=== PATIENT | female | born 1935 | race Caucasian/White ===

== ENCOUNTER 2022-02-15 18:08 | Inpatient (IN) | payer MEDICARE, OTHER ==
[~2022-02-15] VITALS: Ht 157.5 cm; Wt 56.5 kg
[2022-02-15 19:04] LABS: Basophils # (auto) 0 10 ^3/uL (0-0.2); Eosinophils # (auto) 0 10 ^3/uL (0-0.8); Hemoglobin 15.2 g/dL (12.2-16.2); Lymphocytes # (auto) 0.7 10 ^3/uL (0.4-5.4); Monocytes # (auto) 0.6 10 ^3/uL (0-1.3); Neutrophils # (auto) 5.9 10 ^3/uL (1.6-8.6); Red Blood Cells 5.31 10^6/uL (4.0-5.20); Red Cell Distribution Width 14.5 % (11.8-14.3)
[2022-02-15 19:05] LABS: Basophils % (auto) 0.4 % (0.0-2.0); Eosinophils % (auto) 0.1 % (0.0-7.0); Hematocrit 49.1 % (36.0-46.0); Lymphocytes % (auto) 9.9 % (10.0-50.0); Mean Corpuscular Hemoglobin 28.7 pg (28.0-32.0); Mean Corpuscular Volume 92.4 fL (80.0-100.0); Monocytes % (auto) 8.3 % (0.0-12.0); Neutrophils % (auto) 81.3 % (37.0-80.0); Nucleated Red Blood Cells % 0.6 %; White Blood Cell 7.3 10^3/uL (4.4-10.8)
[2022-02-15 19:25] LABS: Alanine Aminotransferase 19 U/L (13-56); Albumin 3.5 g/dL (3.4-5.0); Anion Gap 9 (5-15); Blood Urea Nitrogen 18 mg/dL (7-18); Calcium 8.3 mg/dL (8.5-10.1); Carbon Dioxide 29 mmol/L (21-32); Chloride 99 mmol/L (98-107); GFR African American 117 mL/min; GFR Non-African American 97 mL/min; Glucose 89 mg/dL (74-106); Magnesium 2.2 mg/dL (1.6-2.6); Potassium 5.4 mmol/L (3.5-5.1); Sodium 137 mmol/L (136-145)
[2022-02-15 19:28] LABS: Alkaline Phosphatase 56 U/L (45-117); Aspartate Aminotransferase 40 U/L (15-37); Bilirubin, Total 0.8 mg/dL (0.2-1.0); Total Protein 6.3 g/dL (6.4-8.2)
[2022-02-16 01:18] LABS: Urine Bacteria NONE SEEN /hpf (None Seen); Urine Blood Negative /uL (Negative); Urine Hyaline Cast FEW /lpf (0 - 2); Urine Mucus MODERATE (None Seen); Urine Specific Gravity 1.032 (1.001-1.035); Urine WBC 5 /hpf (0 - 5)
[2022-02-16] MEDS ORDERED: FUROSEMIDE 100 MG/10ML VIAL IV ONE (03:15)
[2022-02-16] MEDS ORDERED: ACETAMINOPHEN 325 MG TAB PO PRN (06:00)
[2022-02-16] MEDS ORDERED: ONDANSETRON HCL 4 MG/2 ML VIAL IV PRN (06:00)
[2022-02-16] MEDS ORDERED: MORPHINE SULFATE INJ 2 MG/ml SYRG IV PRN (06:00)
[2022-02-16] MEDS ORDERED: NITROGLYCERIN 0.4 MG SL TAB SL PRN (06:00)
[2022-02-16] MEDS ORDERED: HYDROcodone-ACET 5/325MG TAB PO PRN (06:00)
[2022-02-16] MEDS: FUROSEMIDE 20 MG/2 ML VIAL IV SCH ×2 (06:24→18:00)
[2022-02-16] MEDS ORDERED: cefTRIAXone 1GM/50ML D5W 50 ML IV SCH (09:00)
[2022-02-16] MEDS ORDERED: ZINC SULFATE 220mg CAP or TAB PO SCH (10:00)
[2022-02-16] MEDS ORDERED: AZITHROMYCIN 500MG/ 250ML 250 ML IV SCH (10:00)
[2022-02-16] MEDS ORDERED: ASCORBIC ACID 500 MG TAB PO SCH (10:00)
[2022-02-16] MEDS ORDERED: PANTOPRAZOLE 40 MG TAB PO SCH (10:00)
[2022-02-16] MEDS ORDERED: ASPirin 81 mg TAB PO SCH (10:00)
[2022-02-16 11:40] VITALS: BP 126/70
[2022-02-16 11:52] VITALS: BP 126/70
[2022-02-16] MEDS: ENOXAPARIN SOD 40 MG/0.4 ML SYRINGE SC SCH (13:46)
[2022-02-16 14:15] VITALS: BP 85/52
[2022-02-16 19:05] VITALS: BP 95/47
[2022-02-16] MEDS ORDERED: CLINDAMYCIN 300MG IV 50 ML IV ONE (19:15)
[2022-02-16 20:05] VITALS: BP 93/52
[2022-02-16 21:04] LABS: Basophils # (auto) 0 10 ^3/uL (0-0.2); Basophils % (auto) 0.4 % (0.0-2.0); Eosinophils # (auto) 0 10 ^3/uL (0-0.8); Eosinophils % (auto) 0.1 % (0.0-7.0); Hematocrit 45.5 % (36.0-46.0); Hemoglobin 13.8 g/dL (12.2-16.2); Lymphocytes # (auto) 0.8 10 ^3/uL (0.4-5.4); Lymphocytes % (auto) 10.9 % (10.0-50.0); Mean Corpuscular Hemoglobin 28.5 pg (28.0-32.0); Mean Corpuscular Hgb Conc. 30.3 g/dL (32.0-36.0); Mean Corpuscular Volume 94.2 fL (80.0-100.0); Monocytes # (auto) 0.7 10 ^3/uL (0-1.3); Monocytes % (auto) 8.9 % (0.0-12.0); Neutrophils % (auto) 79.7 % (37.0-80.0); Nucleated Red Blood Cells % 0.4 %; Red Blood Cells 4.83 10^6/uL (4.0-5.20); Red Cell Distribution Width 14.7 % (11.8-14.3); White Blood Cell 7.5 10^3/uL (4.4-10.8)
[2022-02-16 21:18] LABS: Anion Gap 4 (5-15); BUN/Creatinine Ratio 31.1; Blood Urea Nitrogen 19 mg/dL (7-18); Calcium 8.1 mg/dL (8.5-10.1); Carbon Dioxide 40 mmol/L (21-32); Chloride 95 mmol/L (98-107); GFR African American 120 mL/min; GFR Non-African American 99 mL/min; Glucose 102 mg/dL (74-106); Sodium 139 mmol/L (136-145)
[2022-02-16] MEDS ORDERED: ALBUMIN 5% 250 ML IV ONE (21:30)
[2022-02-16] MEDS ORDERED: ATORVASTATIN 20 MG TAB PO SCH (22:00)
[2022-02-16 22:10] VITALS: BP 78/45
[2022-02-16] MEDS: CEFEPIME 1GM/ 50ML 50 ML IV SCH (22:25)
[2022-02-17 00:25] VITALS: BP 100/55
[2022-02-17 02:32] VITALS: BP 89/54
[2022-02-17 04:10] VITALS: BP 92/57
[2022-02-17 05:16] LABS: Eosinophils # (auto) 0 10 ^3/uL (0-0.8); Hemoglobin 14.5 g/dL (12.2-16.2); Lymphocytes # (auto) 0.8 10 ^3/uL (0.4-5.4); Monocytes # (auto) 0.6 10 ^3/uL (0-1.3); Neutrophils # (auto) 6.3 10 ^3/uL (1.6-8.6); Nucleated Red Blood Cells % 0.3 %
[2022-02-17 05:21] LABS: Basophils # (auto) 0.1 10 ^3/uL (0-0.2); Basophils % (auto) 1.2 % (0.0-2.0); Eosinophils % (auto) 0.2 % (0.0-7.0); Lymphocytes % (auto) 10.4 % (10.0-50.0); Mean Corpuscular Hemoglobin 28.5 pg (28.0-32.0); Mean Corpuscular Hgb Conc. 30.8 g/dL (32.0-36.0); Mean Corpuscular Volume 92.6 fL (80.0-100.0); Monocytes % (auto) 7.6 % (0.0-12.0); Neutrophils % (auto) 80.6 % (37.0-80.0); Red Blood Cells 5.08 10^6/uL (4.0-5.20); Red Cell Distribution Width 14.6 % (11.8-14.3); White Blood Cell 7.8 10^3/uL (4.4-10.8)
[2022-02-17 05:34] LABS: Albumin 3.3 g/dL (3.4-5.0); Calcium 8.3 mg/dL (8.5-10.1); Potassium 3.7 mmol/L (3.5-5.1)
[2022-02-17 05:37] LABS: BUN/Creatinine Ratio 30.6; Bilirubin, Total 0.7 mg/dL (0.2-1.0); Total Protein 5.8 g/dL (6.4-8.2)
[2022-02-17] MEDS: CLINDAMYCIN 300MG IV 50 ML IV SCH ×2 (06:16→14:46)
[2022-02-17 07:20] VITALS: BP 85/50
[2022-02-17] MEDS ORDERED: PHENYLEPHRINE IV 250 ML IV SCH (07:45)
[2022-02-17 08:20] VITALS: BP 94/54
[2022-02-17] MEDS: FUROSEMIDE 20 MG/2 ML VIAL IV SCH (10:00)
[2022-02-17] MEDS: CEFEPIME 1GM/ 50ML 50 ML IV SCH (10:44)
[2022-02-17] MEDS: ENOXAPARIN SOD 40 MG/0.4 ML SYRINGE SC SCH (10:44)
[2022-02-17] MEDS ORDERED: VANCOMYCIN PER PHARMACY 0 MG IV SCH (16:45)
[2022-02-17] MEDS: VANCOMYCIN 1GM/250ML 250 ML IV SCH (17:01)
[2022-02-18] MEDS: CEFEPIME 1GM/ 50ML 50 ML IV SCH (01:15)
[2022-02-18 05:01] VITALS: BP 106/53
[2022-02-18 09:00] VITALS: BP 112/60
[2022-02-18] MEDS: ENOXAPARIN SOD 40 MG/0.4 ML SYRINGE SC SCH (10:46)
[2022-02-18] MEDS: FUROSEMIDE 20 MG/2 ML VIAL IV SCH (10:46)
[2022-02-18 13:00] VITALS: BP 118/65
[2022-02-18 17:00] VITALS: BP 119/63
[2022-02-18] MEDS: VANCOMYCIN 1GM/250ML 250 ML IV SCH (17:22)
[2022-02-18 22:00] VITALS: BP 113/58
[2022-02-19 04:52] VITALS: BP 100/55
[2022-02-19 09:00] VITALS: BP 103/60
[2022-02-19 10:02] VITALS: BP 103/60
[2022-02-19 13:00] VITALS: BP 120/67
[2022-02-19] MEDS: ENOXAPARIN SOD 40 MG/0.4 ML SYRINGE SC SCH (13:06)
[2022-02-19] MEDS: FUROSEMIDE 20 MG/2 ML VIAL IV SCH (13:06)
[2022-02-19] MEDS: ALBUTEROL SULF 2.5 MG/0.5ML(0.5%) NEB SOLN NEB PRN (14:41)
[2022-02-19] MEDS: IPRATROPIUM BROM 0.5 MG/2.5ML INH SOL NEB PRN (14:41)
[2022-02-19 17:00] VITALS: BP 122/67
[2022-02-19] MEDS: VANCOMYCIN 1GM/250ML 250 ML IV SCH (17:03)
[2022-02-19 21:28] VITALS: BP 107/58
[2022-02-20 04:53] VITALS: BP 94/58
[2022-02-20 06:00] LABS: BUN/Creatinine Ratio 41.4; Calcium 8.4 mg/dL (8.5-10.1)
[2022-02-20 08:16] VITALS: BP 97/57
[2022-02-20] MEDS: FUROSEMIDE 20 MG/2 ML VIAL IV SCH (10:34)
[2022-02-20] MEDS: ENOXAPARIN SOD 40 MG/0.4 ML SYRINGE SC SCH (10:34)
[2022-02-20 11:43] VITALS: BP 121/65
[2022-02-20 17:00] VITALS: BP 122/57
[2022-02-20] MEDS: IPRATROPIUM BROM 0.5 MG/2.5ML INH SOL NEB PRN ×2 (17:38→22:08)
[2022-02-20] MEDS: ALBUTEROL SULF 2.5 MG/0.5ML(0.5%) NEB SOLN NEB PRN ×2 (17:38→22:08)
[2022-02-20] MEDS: VANCOMYCIN 1GM/250ML 250 ML IV SCH (18:11)
[2022-02-20 21:48] VITALS: BP 129/67
[2022-02-21 04:54] VITALS: BP 101/64
[2022-02-21 08:00] VITALS: BP 114/59
[2022-02-21 09:00] VITALS: BP 113/65
[2022-02-21] MEDS: ALBUTEROL SULF 2.5 MG/0.5ML(0.5%) NEB SOLN NEB PRN ×2 (09:08→23:42)
[2022-02-21] MEDS: IPRATROPIUM BROM 0.5 MG/2.5ML INH SOL NEB PRN ×2 (09:08→23:42)
[2022-02-21] MEDS: FUROSEMIDE 20 MG/2 ML VIAL IV SCH (10:01)
[2022-02-21] MEDS: ENOXAPARIN SOD 40 MG/0.4 ML SYRINGE SC SCH (10:01)
[2022-02-21 13:00] VITALS: BP 125/71
[2022-02-21] MEDS: VANCOMYCIN 1GM/250ML 250 ML IV SCH (16:37)
[2022-02-21 17:00] VITALS: BP 104/53
[2022-02-21 22:00] VITALS: BP 132/66
[2022-02-22] MEDS: IPRATROPIUM BROM 0.5 MG/2.5ML INH SOL NEB PRN (03:11)
[2022-02-22] MEDS: ALBUTEROL SULF 2.5 MG/0.5ML(0.5%) NEB SOLN NEB PRN (03:11)
[2022-02-22 05:00] VITALS: BP 109/69
[2022-02-22 09:00] VITALS: BP 120/68
[2022-02-22 09:33] LABS: BUN/Creatinine Ratio 14.1; Calcium 8.9 mg/dL (8.5-10.1)
[2022-02-22] MEDS: ENOXAPARIN SOD 40 MG/0.4 ML SYRINGE SC SCH (10:11)
[2022-02-22] MEDS: FUROSEMIDE 20 MG/2 ML VIAL IV SCH (10:11)
[2022-02-22 13:00] VITALS: BP 129/68
[2022-02-22 17:20] VITALS: BP 122/64
[2022-02-22] MEDS: VANCOMYCIN 1GM/250ML 250 ML IV SCH (17:59)
[2022-02-22 22:00] VITALS: BP 111/48
[2022-02-23 05:50] VITALS: BP 111/48
[2022-02-23 05:57] VITALS: BP 118/67
[2022-02-23 09:00] VITALS: BP 137/67
[2022-02-23] MEDS: ENOXAPARIN SOD 40 MG/0.4 ML SYRINGE SC SCH (10:09)
[2022-02-23] MEDS: FUROSEMIDE 20 MG/2 ML VIAL IV SCH (10:10)
[2022-02-23] MEDS ORDERED: AMOX500T86 PO (12:22)
[2022-02-23] MEDS ORDERED: DOXY-340 PO (12:23)
[2022-02-23 13:00] VITALS: BP 111/72
[2022-02-23 15:42] VITALS: BP 118/67
== END 2022-02-23 17:45 | disposition home health service (06) | DRG 193 ==
LOC: ER 18:08 → TELE-CENTR 22:22 → TELE 02-16 05:49 → TELE-CENTR 02-17 22:30
PROVIDERS: ADMIT Nurse Practitioner; ATTEND Internal Medicine Nephrology
PROC: 5A09357 Assistance with Respiratory Ventilation, Less than 24 Consecutive Hours, Continuous Positive Airway Pressure (ICD-10-PCS; principal; 2022-02-16)
PROC: 5A09357 Assistance with Respiratory Ventilation, Less than 24 Consecutive Hours, Continuous Positive Airway Pressure (ICD-10-PCS; 2022-02-17)
PROC: 5A09357 Assistance with Respiratory Ventilation, Less than 24 Consecutive Hours, Continuous Positive Airway Pressure (ICD-10-PCS; 2022-02-18)
PROC: 5A09357 Assistance with Respiratory Ventilation, Less than 24 Consecutive Hours, Continuous Positive Airway Pressure (ICD-10-PCS; 2022-02-19)
PROC: 5A09357 Assistance with Respiratory Ventilation, Less than 24 Consecutive Hours, Continuous Positive Airway Pressure (ICD-10-PCS; 2022-02-20)
DX: J18.9 Pneumonia, unspecified organism (principal); J96.01 Acute respiratory failure with hypoxia; J96.02 Acute respiratory failure with hypercapnia; G93.40 Encephalopathy, unspecified; L03.116 Cellulitis of left lower limb; E87.2 Acidosis; J98.11 Atelectasis; Z66 Do not resuscitate; F17.210 Nicotine dependence, cigarettes, uncomplicated; I50.9 Heart failure, unspecified; I87.8 Other specified disorders of veins; J43.9 Emphysema, unspecified; L01.03 Bullous impetigo; Z20.822 Contact with and (suspected) exposure to COVID-19; E87.5 Hyperkalemia
CPT/HCPCS: 36415; 36600; 70450; 71045; 73700; 80048; 80053; 80202; 81001; 82565; 82805; 83605; 83735; 83880; 84484; 85025; 85379; 87040; 93005; 93306; 93925; 93970; 94640; 94660; 96374; 97163; 99291; G0378; J0696; J3490

== ENCOUNTER → 2022-03-04 | Outpatient (CLI) | payer MEDICARE ==
[~2022-03-04] MED LIST: AMOX500T86 PO; DOXY-340 PO
[2022-03-04 11:40] VITALS: BP 110/62
[2022-03-04 12:37] VITALS: BP 144/65
== END | disposition home or self-care (01) ==
LOC: CHF HDHVI 11:40
PROVIDERS: ATTEND Internal Medicine Cardiovascular Disease
DX: L03.90 Cellulitis, unspecified (principal); R22.43 Localized swelling, mass and lump, lower limb, bilateral
CPT/HCPCS: G0463

== ENCOUNTER → 2022-03-23 | Outpatient (CLI) | payer MEDICARE ==
[~2022-03-23] MED LIST changes: +ALBUTEROL SULF 2.5 MG/0.5ML(0.5%) NEB SOLN ONE
== END | disposition home or self-care (01) ==
LOC: RT 10:12
PROVIDERS: ATTEND Internal Medicine Pulmonary Disease
DX: J44.9 Chronic obstructive pulmonary disease, unspecified (principal)
CPT/HCPCS: 94060; 94727; 94729

== ENCOUNTER 2022-10-06 14:08 | Inpatient (IN) | payer MEDICARE ==
[~2022-10-06] VITALS: Ht 165.1 cm; Wt 43.6 kg
[~2022-10-06 14:08] MED LIST changes: -ALBUTEROL SULF 2.5 MG/0.5ML(0.5%) NEB SOLN ONE
[2022-10-06] MEDS ORDERED: IPRATROPIUM BROM 0.5 MG/2.5ML INH SOL HHN ONE (14:30)
[2022-10-06] MEDS ORDERED: FUROSEMIDE 40 MG/4 ML VIAL IV ONE (14:30)
[2022-10-06] MEDS ORDERED: ALBUTEROL SULF 2.5 MG/0.5ML(0.5%) NEB SOLN HHN ONE (14:30)
[2022-10-06] MEDS ORDERED: methylPREDNISolone SOD SUCC 125 MG/2 ML VL IV ONE (14:30)
[2022-10-06 15:00] LABS: Hematocrit 40.3 % (36.0-46.0); Hemoglobin 12.8 g/dL (12.2-16.2); Mean Corpuscular Hemoglobin 31.1 pg (28.0-32.0); Mean Corpuscular Hgb Conc. 31.8 g/dL (32.0-36.0); Mean Corpuscular Volume 97.7 fL (80.0-100.0); Red Blood Cells 4.12 10^6/uL (4.0-5.20); Red Cell Distribution Width 13.6 % (11.8-14.3); White Blood Cell 12.1 10^3/uL (4.4-10.8)
[2022-10-06 15:05] LABS: Albumin 2.9 g/dL (3.4-5.0); BUN/Creatinine Ratio 37.8 (10.0-20.0); Calcium 9.2 mg/dL (8.5-10.1); Magnesium 2.3 mg/dL (1.6-2.6); Potassium 4.6 mmol/L (3.5-5.1)
[2022-10-06 15:09] LABS: Bilirubin, Total 0.4 mg/dL (0.2-1.0); Total Protein 6.1 g/dL (6.4-8.2)
[2022-10-06 15:17] LABS: Basophils % (manual) 0 (0.0-2.0); Blast Cells 0; Eosinophils % (manual) 0 (0-7); Myelocytes % 0; Promyelocytes % 0; Reactive Lymphocytes 0
[2022-10-06 15:37] LABS: Band Neutrophils % (manual) 1; Lymphocytes % (manual) 10 (10.0-50.0); Metamyelocytes % 1; Monocytes % (manual) 5 (0-12)
[2022-10-06 18:52] LABS: Urine Bacteria NONE SEEN /hpf (None Seen); Urine Blood Negative /uL (Negative); Urine Hyaline Cast FEW /lpf (0 - 2); Urine Mucus FEW (None Seen); Urine Specific Gravity 1.007 (1.001-1.035); Urine WBC 1 /hpf (0 - 5)
[2022-10-06] MEDS ORDERED: ONDANSETRON HCL 4 MG/2 ML VIAL IV PRN (21:30)
[2022-10-06] MEDS ORDERED: ACETAMINOPHEN 325 MG TAB PO PRN (21:30)
[2022-10-06] MEDS ORDERED: HYDROcodone-ACET 5/325MG TAB PO PRN (21:30)
[2022-10-06] MEDS ORDERED: DOCUSATE SOD 100 MG CAP PO PRN (21:30)
[2022-10-06] MEDS: methylPREDNISolone SOD SUCC 40 MG/ML VL IV SCH (23:21)
[2022-10-06] MEDS: SODIUM CHLOR 0.9% PF (SALINE LOCK) 10ML VIAL/SYR IV SCH (23:27)
[2022-10-07] VITALS (7 sets, daily range): BP systolic 111–166; BP diastolic 59–78
[2022-10-07] MEDS ORDERED: FUR20T PO (04:48)
[2022-10-07] MEDS ORDERED: POTA1TAB64 (04:48)
[2022-10-07] MEDS: SODIUM CHLOR 0.9% PF (SALINE LOCK) 10ML VIAL/SYR IV SCH ×3 (05:23→21:54)
[2022-10-07 05:48] LABS: Hematocrit 37.3 % (36.0-46.0); Hemoglobin 12.4 g/dL (12.2-16.2); Mean Corpuscular Hemoglobin 31.3 pg (28.0-32.0); Mean Corpuscular Hgb Conc. 33.2 g/dL (32.0-36.0); Mean Corpuscular Volume 94.3 fL (80.0-100.0); Red Blood Cells 3.96 10^6/uL (4.0-5.20); Red Cell Distribution Width 12.9 % (11.8-14.3); White Blood Cell 13.8 10^3/uL (4.4-10.8)
[2022-10-07 05:56] LABS: Basophils % (manual) 0 (0.0-2.0); Blast Cells 0; Eosinophils % (manual) 0 (0-7); Metamyelocytes % 0; Promyelocytes % 0; Reactive Lymphocytes 0
[2022-10-07 06:11] LABS: Albumin 2.7 g/dL (3.4-5.0); BUN/Creatinine Ratio 40.4 (10.0-20.0); Potassium 4.5 mmol/L (3.5-5.1)
[2022-10-07 06:14] LABS: Bilirubin, Total 0.4 mg/dL (0.2-1.0); Total Protein 5.9 g/dL (6.4-8.2)
[2022-10-07 08:47] LABS: Band Neutrophils % (manual) 32; Lymphocytes % (manual) 4 (10.0-50.0); Monocytes % (manual) 1 (0-12); Myelocytes % 2
[2022-10-07] MEDS: ALBUTEROL SULF 2.5 MG/0.5ML(0.5%) NEB SOLN NEB PRN ×2 (09:28→20:45)
[2022-10-07] MEDS: IPRATROPIUM BROM 0.5 MG/2.5ML INH SOL NEB PRN ×2 (09:28→20:45)
[2022-10-07] MEDS: PANTOPRAZOLE 40 MG/10 ML VIAL INJ IV SCH (10:00)
[2022-10-07] MEDS: methylPREDNISolone SOD SUCC 40 MG/ML VL IV SCH ×2 (10:00→21:51)
[2022-10-08 05:00] VITALS: BP 141/90
[2022-10-08] MEDS: SODIUM CHLOR 0.9% PF (SALINE LOCK) 10ML VIAL/SYR IV SCH ×3 (05:55→21:42)
[2022-10-08 09:00] VITALS: BP 141/70
[2022-10-08] MEDS: methylPREDNISolone SOD SUCC 40 MG/ML VL IV SCH ×2 (10:05→21:42)
[2022-10-08] MEDS: PANTOPRAZOLE 40 MG/10 ML VIAL INJ IV SCH (10:05)
[2022-10-08] MEDS: ALBUTEROL SULF 2.5 MG/0.5ML(0.5%) NEB SOLN NEB PRN ×2 (11:41→20:10)
[2022-10-08] MEDS: IPRATROPIUM BROM 0.5 MG/2.5ML INH SOL NEB PRN ×2 (11:41→20:10)
[2022-10-08 13:00] VITALS: BP 141/70
[2022-10-08 17:00] VITALS: BP 141/72
[2022-10-08 22:00] VITALS: BP 133/68
[2022-10-09 05:22] VITALS: BP 137/69
[2022-10-09] MEDS: SODIUM CHLOR 0.9% PF (SALINE LOCK) 10ML VIAL/SYR IV SCH ×3 (06:08→21:58)
[2022-10-09] MEDS: ALBUTEROL SULF 2.5 MG/0.5ML(0.5%) NEB SOLN NEB PRN (08:08)
[2022-10-09] MEDS: IPRATROPIUM BROM 0.5 MG/2.5ML INH SOL NEB PRN (08:08)
[2022-10-09 09:00] VITALS: BP 125/67
[2022-10-09] MEDS: methylPREDNISolone SOD SUCC 40 MG/ML VL IV SCH ×2 (09:46→21:58)
[2022-10-09] MEDS: PANTOPRAZOLE 40 MG/10 ML VIAL INJ IV SCH (09:46)
[2022-10-09] MEDS ORDERED: guaiFENesin-DM 100/10mg/5ml SYR PO PRN (10:00)
[2022-10-09] MEDS: IPRATROPIUM BROM 0.5 MG/2.5ML INH SOL NEB SCH ×3 (10:21→19:21)
[2022-10-09] MEDS: ALBUTEROL SULF 2.5 MG/0.5ML(0.5%) NEB SOLN NEB SCH ×3 (10:21→19:21)
[2022-10-09 14:00] VITALS: BP 139/73
[2022-10-09 14:49] VITALS: BP 124/64
[2022-10-09] MEDS: FUROSEMIDE 20 MG/2 ML VIAL IV SCH (18:52)
[2022-10-09 22:02] VITALS: BP 151/74
[2022-10-10] MEDS: IPRATROPIUM BROM 0.5 MG/2.5ML INH SOL NEB SCH ×4 (00:19→19:20)
[2022-10-10] MEDS: ALBUTEROL SULF 2.5 MG/0.5ML(0.5%) NEB SOLN NEB SCH ×4 (00:19→19:20)
[2022-10-10 05:00] VITALS: BP 144/72
[2022-10-10] MEDS: SODIUM CHLOR 0.9% PF (SALINE LOCK) 10ML VIAL/SYR IV SCH ×3 (06:59→22:00)
[2022-10-10] MEDS: FUROSEMIDE 20 MG/2 ML VIAL IV SCH ×2 (06:59→18:28)
[2022-10-10 08:05] VITALS: BP 137/65
[2022-10-10 09:00] VITALS: BP 132/72
[2022-10-10] MEDS: PANTOPRAZOLE 40 MG/10 ML VIAL INJ IV SCH (10:25)
[2022-10-10] MEDS: methylPREDNISolone SOD SUCC 40 MG/ML VL IV SCH (10:25)
[2022-10-10 13:00] VITALS: BP 134/73
[2022-10-10 17:00] VITALS: BP 121/71
[2022-10-10 22:00] VITALS: BP 120/67
[2022-10-11] MEDS: methylPREDNISolone SOD SUCC 40 MG/ML VL IV SCH ×3 (03:23→21:41)
[2022-10-11 05:00] VITALS: BP 129/67
[2022-10-11] MEDS: IPRATROPIUM BROM 0.5 MG/2.5ML INH SOL NEB SCH ×5 (06:23→23:48)
[2022-10-11] MEDS: ALBUTEROL SULF 2.5 MG/0.5ML(0.5%) NEB SOLN NEB SCH ×5 (06:23→23:48)
[2022-10-11] MEDS: FUROSEMIDE 20 MG/2 ML VIAL IV SCH ×2 (06:31→17:47)
[2022-10-11] MEDS: SODIUM CHLOR 0.9% PF (SALINE LOCK) 10ML VIAL/SYR IV SCH ×3 (06:31→21:41)
[2022-10-11 09:00] VITALS: BP 143/82
[2022-10-11] MEDS ORDERED: METH4PAK PO (11:34)
[2022-10-11] MEDS ORDERED: DEXT1SYP9 PO (11:34)
[2022-10-11 12:45] VITALS: BP 119/61
[2022-10-11 17:00] VITALS: BP 140/86
[2022-10-11 22:00] VITALS: BP 118/56
[2022-10-12 05:00] VITALS: BP 148/82
[2022-10-12] MEDS: SODIUM CHLOR 0.9% PF (SALINE LOCK) 10ML VIAL/SYR IV SCH (05:00)
[2022-10-12] MEDS: FUROSEMIDE 20 MG/2 ML VIAL IV SCH (06:00)
[2022-10-12] MEDS: IPRATROPIUM BROM 0.5 MG/2.5ML INH SOL NEB SCH ×2 (06:33→13:42)
[2022-10-12] MEDS: ALBUTEROL SULF 2.5 MG/0.5ML(0.5%) NEB SOLN NEB SCH ×2 (06:34→13:42)
[2022-10-12 09:15] VITALS: BP 116/65
[2022-10-12] MEDS: methylPREDNISolone SOD SUCC 40 MG/ML VL IV SCH (09:31)
[2022-10-12 13:25] VITALS: BP 116/52
== END 2022-10-12 15:24 | disposition home health service (06) | DRG 291 ==
LOC: EDBD 14:08 → ER 14:08 → OVERFLOW 21:26 → EAST 10-07 03:31 → WEST WING 10-07 07:35
PROVIDERS: ADMIT Nurse Practitioner Family; ATTEND Internal Medicine
DX: I11.0 Hypertensive heart disease with heart failure (principal); I50.33 Acute on chronic diastolic (congestive) heart failure; J96.01 Acute respiratory failure with hypoxia; J44.1 Chronic obstructive pulmonary disease with (acute) exacerbation; G93.40 Encephalopathy, unspecified; Z68.1 Body mass index [BMI] 19.9 or less, adult; E44.0 Moderate protein-calorie malnutrition; Z20.822 Contact with and (suspected) exposure to COVID-19; D72.829 Elevated white blood cell count, unspecified; Z88.1 Allergy status to other antibiotic agents; Z79.899 Other long term (current) drug therapy; Z79.2 Long term (current) use of antibiotics
CPT/HCPCS: 36415; 36600; 70450; 71045; 80053; 80320; 81001; 82805; 83605; 83735; 83880; 84484; 85007; 85027; 87040; 87426; 93005; 94640; 94644; 96374; 96375; 97110; 97116; 97163; 99291; C9113; G0378